=== PATIENT | male | born 1965 | race Caucasian/White ===

== ENCOUNTER 2024-07-18 00:03 | Emergency (ER) | payer OTHER, SELFPAY ==
[2024-07-18 00:10] VITALS: BP 178/98; PULSE 84; TEMP 36.6; O2SAT 99; BMI 23.0
--- NOTE | 2024-07-18 00:23 | ED_ITS ---
HPI - Wound/Laceration General Chief Complaint: Wound/Laceration Stated Complaint: LACERATION/FALL Time Seen by Provider: 07/18/24 00:20 Source: patient Mode of arrival: walk-in Limitations: no limitations History of Present Illness HPI narrative: patient at [facility]. Drinking alcohol. Lost his balance and fell striking his forehead and sustaining laceration at right eyebrow. sustained mild abrasions right fingers and left forearm. Denies visual complaint or LOC. Denies weakness of his extremities. No complaint of back pain or abdominal pain. No nausae Related Data Allergies Allergy/AdvReac Type Severity Reaction Status Date / Time Penicillins Allergy Hives Verified 07/18/24 00:09 Review of Systems ROS Status of ROS 10 or more systems reviewed and unremark able except as noted in history and below [facility] Social History Little interest or pleasure in doing things: not at all Feeling down, depressed, or hopeless: not at all Exam Constitutional Vital Signs, click to edit/add: Last Vital Signs Temp 97.8 F 07/18/24 00:10 Pulse 84 07/18/24 00:10 Resp 20 07/18/24 00:10 BP 178/98 H 07/18/24 00:10 Pulse Ox 99 07/18/24 00:10 O2 Del Method Room Air 07/18/24 00:10 Common normals: no apparent distress, average body habitus, oriented x3, no limitations, healthy appearing, alert and well nourished [facility] Other: SQ lac right eyebrow Eye Common normals: PERRL and EOMs intact bilaterally Neck & C-Spine Common normals: full ROM Chest Common normals: inspection of chest normal and palpation of chest normal Respiratory Common normals: normal respiratory effort, no retractions, no use of accessory muscles and clear to auscultation bilaterally Cardio Common normals: regular rate, regular rhythm, S1 normal heart sound and S2 normal heart sound GI Common normals: Normal to inspection, nondistended, normoactive bowel sounds present, soft to palpation and non-tender Extremity Other: minor abrasions fingers right hand and lkicnktu-yfym-[id number] FA Neuro Common normals: oriented x3, CN's II-XII intact bilaterally, moves all extremities and no focal motor deficits Psych Appearance: grossly normal Course Vital Signs Vital signs: Vital Signs Temperature 97.8 F 07/18/24 00:10 Pulse Rate 84 07/18/24 00:10 Respiratory Rate 20 07/18/24 00:10 Blood Pressure 178/98 H 07/18/24 00:10 Pulse Oximetry 99 07/18/24 00:10 Oxygen Delivery Method Room Air 07/18/24 00:10 Temperature 97.8 F 07/18/24 00:10 Pulse Rate 84 07/18/24 00:10 Respiratory Rate 20 07/18/24 00:10 Blood Pressure 178/98 H 07/18/24 00:10 Pulse Oximetry 99 07/18/24 00:10 Oxygen Delivery Method Room Air 07/18/24 00:10 MDM - Wound/Laceration MDM Narrative Medical decision making narrative: patient drinking and fell at [place] bon [place] striking his face and lacerating the right eyebrow. Denies LOC. exam neg other than the lac. Lac repaired as above CT face, brain and C-spine pending diagnostic studies neg and patient discharged home Lab Data Labs: Lab Results 07/18/24 Range/Units 00:40 WBC 10.5 (4.0-11.0) 10^3/uL RBC 5.02 (4.70-6.10) 10^6/uL Hgb 15.5 (14.0-18.0) g/dL Hct 45.3 (42.0-54.0) % MCV 90.2 (80.0-94.0) fL MCH 30.9 (25.9-34.0) pg MCHC 34.2 (29.9-35.2) g/dL RDW 13.5 (11.0-15.0) % Plt Count 216 (150-450) 10^3/uL MPV 9.3 L (9.5-13.5) fL Neut % (Auto) 46.1 (43.0-75.0) % Lymph % (Auto) 38.2 (20.5-60.0) % [place] % (Auto) 9.8 (1.7-12.0) % Eos % (Auto) 4.4 (0.9-7.0) % Baso % (Auto) 1.1 (0.2-2.0) % Neut # (Auto) 4.8 (1.4-6.5) 10^3/uL Lymph # (Auto) 4.0 H (1.2-3.8) 10^3/uL [place] # (Auto) 1.0 H (0.3-0.8) 10^3/uL Eos # (Auto) 0.5 (0.0-0.7) 10^3/uL Baso # (Auto) 0.1 (0.0-0.1) 10^3/uL Abs Immat Gran (auto) 0.04 H (0.00-0.03) 10^3/uL Imm/Tot Granulo (auto) 0.4 (0.0-0.5) % Sodium 140 (136-145) mmol/L Potassium 4.4 (3.5-5.1) mmol/L Chloride 103 (98-107) mmol/L Carbon Dioxide 28.1 (21.0-32.0) mmol/L Anion Gap 13.3 BUN 17.0 (7.0-18.0) mg/dL Creatinine 1.32 H (0.70-1.30) mg/dL Est GFR ( Amer) >60 (>=60 mL/min/1.73m^2) Est GFR (Non-Af Amer) 55 L (>=60 mL/min/1.73m^2) BUN/Creatinine Ratio 12.9 Glucose 110 H (74-106) mg/dL Calcium 8.8 (8.5-10.1) mg/dL Ethanol Quant 159 mg/dL Discharge Plan Discharge Chief Complaint: Wound/Laceration Clinical Impression: Laceration, Head injury, Alcohol intoxication Patient Disposition: Home, Self-Care Print Language: Belarusian Instructions: Head Injury (DC), Alcohol Intoxication (ED), Facial Laceration (ED) Additional Instructions: have wound rechecked in 2-3 days and stitches removed in 5-6 days Referrals: Paul Busch DO [Primary Care Provider] - 1 week Procedures ED Procedure Instructions Procedures Procedures: 5cm lac right eyebrow. SQ lac. No FB seen. 1% lido with epi as a local. site cleaned with betadine and closed with #2 5.0 vicryl and #7 6.0 nylon. tolerated wel
--- NOTE | 2024-07-18 00:23 | CT_ITS ---
The [address] [address] Patient Name: STEVEN ZAVALA MRN: [id number] date: 1965 Sex: M Assigned Patient Location: ER Current Patient Location: ER Accession/Order Number: [id number] Exam Date: 07/18/2024 00:42 Report Date: 07/18/2024 02:40 At the request of: VENTURA KENDALL Procedure: CT head/brain wo con EXAM: CT head/brain wo con HISTORY: fall COMPARISON: None. TECHNIQUE: Axial images were obtained from the skull base through vertex without contrast enhancement. Sagittal and coronal reformations were provided. FINDINGS: No acute intracranial hemorrhage, extra-axial fluid collection, midline shift or mass effect is seen. No space-occupying lesion is demonstrated. There is no evidence of hydrocephalus or an acute ischemic event. Only a small amount of mucosal thickening is seen within the visualized paranasal sinuses. The mastoids are well-aerated. Bone windows reveal no evidence of an acute calvarial fracture. CT/CT head/brain wo con IMPRESSION: No CT evidence of an acute intracranial hemorrhage or acute calvarial fracture. Electronically authenticated by: DIANE ANDRADE Date: 07/18/2024 02:40
--- NOTE | 2024-07-18 00:23 | CT_ITS ---
The [address] [address] Patient Name: STEVEN ZAVALA MRN: [id number] date: 1965 Sex: M Assigned Patient Location: ER Current Patient Location: ER Accession/Order Number: [id number] Exam Date: 07/18/2024 00:42 Report Date: 07/18/2024 02:43 At the request of: VENTURA KENDALL Procedure: CT facial bones wo con EXAM: CT facial bones wo con HISTORY: fall COMPARISON: None. TECHNIQUE: Axial images were obtained through the maxillofacial bones without contrast enhancement. Sagittal and coronal reformations were provided. FINDINGS: There is a laceration in the region of the eyebrow on the right. Bone windows reveal no evidence of an acute maxillofacial fracture. Mucosal thickening is seen within the paranasal sinuses. No fluid levels. The mastoids are well-aerated. The intra and extraconal orbital fat is homogeneous. The globes, optic nerve sheaths, rectus muscles and lacrimal glands appear normal. CT/CT facial bones wo con IMPRESSION: No CT evidence of an acute maxillofacial fracture. Electronically authenticated by: DIANE ANDRADE Date: 07/18/2024 02:43
--- NOTE | 2024-07-18 00:23 | CT_ITS ---
The [address] [address] Patient Name: STEVEN ZAVALA MRN: [id number] date: 1965 Sex: M Assigned Patient Location: ER Current Patient Location: Accession/Order Number: [id number] Exam Date: 07/18/2024 00:42 Report Date: 07/18/2024 02:47 At the request of: VENTURA KENDLAL Procedure: CT cervical spine wo con EXAM: CT cervical spine wo con HISTORY: fall COMPARISON: None. TECHNIQUE: Axial images were obtained through the cervical vertebral column without contrast enhancement. Sagittal and coronal reformations were provided. Dose reduction techniques were achieved by using automated exposure control and/or adjustment of mA and/or kV according to patient size and/or use of iterative reconstruction technique COMMENT: The lack of intradural contrast and streak artifact from bone about the vertebral column limit evaluation for disc protrusion, bulge and the spinal canal in general. FINDINGS: No CT evidence of an acute fracture, subluxation or loss of vertebral body height. Loss of disc space and endplate osteophyte formation are noted at C5-C6. There is also loss of disc space at C6-C7. No malalignment at the craniocervical junction. While assessment is again suboptimal on this noncontrast CT, there appear to be areas of canal narrowing due to disc bulging and endplate osteophyte. Uncovertebral spurring and facet degenerative change also result in foraminal stenosis at C5-C6. CT/CT cervical spine wo con IMPRESSION: 1. Degenerative change of the cervical vertebral column without CT evidence of an acute fracture. 2. If there is further clinical indication to evaluate the spinal canal, cord or for ligamentous injury consider MRI as it would be more sensitive. Electronically authenticated by: DIANE ANDRADE Date: 07/18/2024 02:47
[2024-07-18 00:52] LABS: Basophils Absolute Auto 0.1 10^3/uL (0.0-0.1); Basophils Percent Auto 1.1 % (0.2-2.0); Eosinophils Absolute Auto 0.5 10^3/uL (0.0-0.7); Eosinophils Percent Auto 4.4 % (0.9-7.0); Hematocrit 45.3 % (42.0-54.0); Hemoglobin 15.5 g/dL (14.0-18.0); Immature Granulocytes Abs Auto 0.04 10^3/uL (0.00-0.03); Immature Granulocytes Pct Auto 0.4 % (0.0-0.5); Lymphocytes Percent Auto 38.2 % (20.5-60.0); Mean Corpuscular HGB Conc 34.2 g/dL (29.9-35.2); Mean Corpuscular Hemoglobin 30.9 pg (25.9-34.0); Mean Corpuscular Volume 90.2 fL (80.0-94.0); Mean Platelet Volume 9.3 fL (9.5-13.5); Monocytes Percent Auto 9.8 % (1.7-12.0); Neutrophils Absolute Auto 4.8 10^3/uL (1.4-6.5); Neutrophils Percent Auto 46.1 % (43.0-75.0); Platelet Count 216 10^3/uL (150-450); Red Blood Count 5.02 10^6/uL (4.70-6.10); Red Cell Distribution Width 13.5 % (11.0-15.0); White Blood Count 10.5 10^3/uL (4.0-11.0)
[2024-07-18 01:04] LABS: Anion Gap 13.3; BUN Creatinine Ratio 12.9; Calcium 8.8 mg/dL (8.5-10.1); Carbon Dioxide 28.1 mmol/L (21.0-32.0); Chloride 103 mmol/L (98-107); Estimated GFR (African America >60 (>=60 mL/min/1.73m^2); Estimated GFR (Non-African Ame 55 (>=60 mL/min/1.73m^2); Ethanol 159 mg/dL; Glucose 110 mg/dL (74-106); Potassium 4.4 mmol/L (3.5-5.1); Sodium 140 mmol/L (136-145)
[2024-07-18] MEDS: LIDOCAINE HCL 1%-EPINEPHRINE 1:100,000 20 ML MDV INJ (01:42)
== END 2024-07-18 03:13 | disposition home or self-care (01) ==
PROVIDERS: Emergency Provider Internal Medicine; PCP Family Medicine
DX: S01.111A Laceration without foreign body of right eyelid and periocular area, initial encounter (principal); W19.XXXA Unspecified fall, initial encounter; S09.90XA Unspecified injury of head, initial encounter; F10.129 Alcohol abuse with intoxication, unspecified; Y90.6 Blood alcohol level of 120-199 mg/100 ml
CPT/HCPCS: 12013; 36415; 70450; 70486; 72125; 80048; 80320; 85025; 99284